=== PATIENT | female | born 1985 | race Two or more races ===

== ENCOUNTER 2017-03-23 20:34 | Emergency (ER) | payer SELFPAY ==
[~2017-03-23] VITALS: Ht 162.6 cm; Wt 68.0 kg
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
[2017-03-23] MEDS ORDERED: ONDANSETRON HCL/PF 4 MG/2 ML VIAL IVP ONE (21:00)
[2017-03-23] MEDS ORDERED: CLINDAMYCIN 900 MG in IV D5W 50 ML IV ONE (21:00)
[2017-03-23] MEDS ORDERED: MORPHINE SULFATE INJ 2 MG/ML DISP.SYRIN IV ONE (21:00)
[2017-03-23] MEDS ORDERED: ONDANSETRON HCL/PF 4 MG/2 ML VIAL ONE (21:23)
[2017-03-23] MEDS ORDERED: MORPHINE SULFATE INJ 4 MG/ML DISP.SYRIN ONE (21:23)
[2017-03-23] MEDS ORDERED: CLINDAMYCIN 900 MG/6 ML VIAL ONE (21:23)
[2017-03-23] MEDS ORDERED: IV D5W 50 ML IV ONE (21:24)
--- NOTE | 2017-03-23 21:33 | NUR ---
MEDICATED PT ORDERED
[2017-03-23] MEDS ORDERED: LORAZEPAM INJ 2 MG/ML VIAL ONE (22:07)
[2017-03-23] MEDS ORDERED: HYDROMORPHONE 1 MG/1 ML DISP.SYRIN ONE (22:07)
[2017-03-23] MEDS ORDERED: HYDROMORPHONE 1 MG/1 ML DISP.SYRIN IV ONE (22:30)
[2017-03-23] MEDS ORDERED: LORAZEPAM INJ 2 MG/ML VIAL IV ONE (22:30)
--- NOTE | 2017-03-23 22:45 | NUR ---
IV removed. Catheter intact and site benign. Pressure and 4x4 applied to site. No bleeding noted.Patient discharged to home in stable condition. Written and verbal after care instructions given. Patient verbalizes understanding of instruction.
[2017-03-23 22:46] VITALS: BP 128/78
== END 2017-03-23 22:46 | disposition home or self-care (01) ==
LOC: ER 20:39
DX: S61.512D Laceration without foreign body of left wrist, subsequent encounter (principal); Z90.49 Acquired absence of other specified parts of digestive tract; Z88.0 Allergy status to penicillin; W25.XXXD Contact with sharp glass, subsequent encounter; Y93.89 Activity, other specified; Y92.89 Other specified places as the place of occurrence of the external cause; Y99.9 Unspecified external cause status
CPT/HCPCS: A4606; A6402; J1170; J2060; J2270; J2405; J3490; J7060; Z7610

== ENCOUNTER 2018-01-29 20:54 | Emergency (ER) | payer MEDICAID ==
[~2018-01-29] VITALS: Ht 160 cm; Wt 65.8 kg
[2018-01-29 21:28] VITALS: BP 149/93
--- NOTE | 2018-01-29 22:49 | NUR ---
AND DARRICK QUEVEDO BEDSIDE FOR PELVIC EXAM.
[2018-01-29 22:50] LABS: APPEARANCE,URINE SL CLOUDY (CLEAR); BILIRUBIN,URINE 1+ (NEGATIVE); BLOOD, URINE TRACE-INTA Ery/uL (NEGATIVE); COLOR,URINE DARK YELLO (YELLOW); KETONES,URINE NEGATIVE (NEGATIVE); LEUKOCYTE ESTERASE ,URINE TRACE (NEGATIVE); NITRITE, URINE NEGATIVE (NEGATIVE); PROTEIN,URINE TRACE mg/dl (NEGATIVE); UGLUCOSE NEGATIVE (NEGATIVE); UROBILINOGEN,URINE 0.2 EU/dL (0.2)
--- NOTE | 2018-01-29 22:56 | NUR ---
AND DARRICK QUEVEDO OUT OF PT'S ROOM
[2018-01-29 23:15] LABS: BACTERIA,URINE None seen /HPF (None Seen); SQUAMOUS EPITHELIAL CELL,UR Moderate /HPF (None Seen); WBC,URINE 0-2 /HPF (0-3)
== END 2018-01-30 01:16 | disposition home or self-care (01) ==
LOC: ER 20:54
DX: A63.0 Anogenital (venereal) warts (principal); Z90.49 Acquired absence of other specified parts of digestive tract; Z88.0 Allergy status to penicillin
CPT/HCPCS: 36415; 81001; 84703; 86592; 87210; 87491; 87591; 99284; A4606; A6402; Z7610; 81000-TC

== ENCOUNTER 2018-06-14 00:30 | Emergency (ER) | payer MEDICAID ==
--- NOTE | 2018-06-14 00:40 | NUR ---
CALLED FOR TRIAGE; NOT IN LOBBY
--- NOTE | 2018-06-14 00:52 | NUR ---
NOT IN LOBBY AGAIN FOR TRIAGE
--- NOTE | 2018-06-14 01:56 | NUR ---
CALLED AGAIN; NOT IN LOBBY OR OUTSIDE
--- NOTE | 2018-06-14 02:16 | NUR ---
CALLED AGAIN AND AGAIN; NOT IN LOBBY OR OUTSIDE ER.
--- NOTE | 2018-06-14 02:49 | NUR ---
STILL NOT IN LOBBY.
== END 2018-06-14 02:50 | disposition left against medical advice (07) ==
LOC: ER 00:32
DX: Z53.21 Procedure and treatment not carried out due to patient leaving prior to being seen by health care provider (principal); Z90.49 Acquired absence of other specified parts of digestive tract; Z88.0 Allergy status to penicillin

== ENCOUNTER 2019-11-01 23:37 | Emergency (ER) | payer MEDICAID ==
[~2019-11-01] VITALS: Ht 160 cm; Wt 70.3 kg
[2019-11-01 23:37] VITALS: BP 124/62
--- NOTE | 2019-11-02 00:06 | NUR ---
Patient discharged to home in stable condition. Written and verbal after care instructions given. Patient verbalizes understanding of instruction.
== END 2019-11-02 00:06 | disposition home or self-care (01) ==
LOC: ER 23:39
DX: L02.414 Cutaneous abscess of left upper limb (principal); F17.200 Nicotine dependence, unspecified, uncomplicated; Z90.49 Acquired absence of other specified parts of digestive tract; Z88.0 Allergy status to penicillin

== ENCOUNTER 2019-12-08 23:59 | Emergency (ER) | payer MEDICAID ==
[~2019-12-08] VITALS: Ht 160 cm; Wt 65.8 kg
[2019-12-08 23:59] VITALS: BP 147/98
== END 2019-12-09 02:09 | disposition home or self-care (01) ==
LOC: ER 12-09
DX: L03.115 Cellulitis of right lower limb (principal); L03.114 Cellulitis of left upper limb; F17.200 Nicotine dependence, unspecified, uncomplicated; Z90.49 Acquired absence of other specified parts of digestive tract; Z88.0 Allergy status to penicillin

== ENCOUNTER 2021-08-23 19:09 | Emergency (ER) | payer MEDICAID ==
[~2021-08-23] VITALS: Ht 160 cm; Wt 72.6 kg
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
--- NOTE | 2021-08-23 19:48 | NUR ---
US AT BEDSIDE
--- NOTE | 2021-08-23 20:26 | NUR ---
lab at bedside
[2021-08-23 20:35] LABS: BASOPHILS % (AUTO) 0.6 % (0.0-2.0); HEMATOCRIT 38 % (33-45); HEMOGLOBIN 12.6 g/dL (11.5-14.8); LYMPHOCYTES % (AUTO) 30.6 % (20.0-44.0); MEAN CORPUSCULAR HGB CONC 33 g/dl (31.0-36.0); MEAN CORPUSCULAR VOLUME 88 fL (82-100); MONOCYTES # (AUTO) 0.3 K/uL (0.1-1.30); MONOCYTES % (AUTO) 5.1 % (2.0-12.0); NEUTROPHILS # (AUTO) 4.1 K/uL (1.8-8.9); NEUTROPHILS % (AUTO) 61.7 % (43.0-81.0); PLATELET COUNT (AUTO) 382 K/uL (150-450); RED BLOOD CELL COUNT(AUTO) 4.33 MIL/uL (4.0-5.2); WHITE BLOOD COUNT (AUTO) 6.6 K/uL (4.3-11.0)
--- NOTE | 2021-08-23 20:47 | NUR ---
F/U LAB ABOUT URINE
[2021-08-23 21:05] LABS: CALCIUM, SERUM 8.2 mg/dL (8.5-10.1); CREATININE 1.1 mg/dL (0.6-1.3); POTASSIUM 3.5 mmol/L (3.5-5.1)
--- NOTE | 2021-08-23 21:11 | NUR ---
sent urine to lab
[2021-08-23] MEDS ORDERED: NITR100C6 PO (21:54)
[2021-08-23 21:57] LABS: BILIRUBIN,URINE Negative (NEGATIVE); COLOR,URINE YELLOW (YELLOW); LEUKOCYTE ESTERASE ,URINE Small (NEGATIVE); NITRITE, URINE Negative (NEGATIVE); PROTEIN,URINE Negative (NEGATIVE); UGLUCOSE Negative (NEGATIVE); UROBILINOGEN,URINE 0.2 EU/dL (0.2)
[2021-08-23 22:02] LABS: BACTERIA,URINE 1+ /HPF (None Seen); SQUAMOUS EPITHELIAL CELL,UR Few /HPF (None Seen)
--- NOTE | 2021-08-23 22:08 | NUR ---
Patient discharged to home in stable condition. Written and verbal after care instructions given. Patient verbalizes understanding of instruction. PT ambulatory with a steady gait
[2021-08-23 22:14] VITALS: BP 142/95
== END 2021-08-23 22:08 | disposition home or self-care (01) ==
LOC: ER 19:20
DX: O34.81 Maternal care for other abnormalities of pelvic organs, first trimester (principal); N83.292 Other ovarian cyst, left side; N83.291 Other ovarian cyst, right side; F45.8 Other somatoform disorders; N39.0 Urinary tract infection, site not specified; F17.200 Nicotine dependence, unspecified, uncomplicated; Z90.49 Acquired absence of other specified parts of digestive tract; Z88.0 Allergy status to penicillin; Z79.899 Other long term (current) drug therapy
CPT/HCPCS: 36415; 76856; 80048; 81001; 84702; 85025; 85730; 86850; 87086; 99284; J7030

== ENCOUNTER 2023-12-18 19:34 | Emergency (ER) | payer MEDICAID ==
[~2023-12-18] VITALS: Ht 160 cm; Wt 68.0 kg
[~2023-12-18 19:34] MED LIST: NITR100C6 PO
[2023-12-18 23:08] VITALS: BP 138/95; TEMP 98.7; O2SAT 100
== END 2023-12-18 23:10 | disposition left against medical advice (07) ==
LOC: ER 19:36
DX: O46.91 Antepartum hemorrhage, unspecified, first trimester (principal); O26.891 Other specified pregnancy related conditions, first trimester; R10.30 Lower abdominal pain, unspecified; Z3A.10 10 weeks gestation of pregnancy
CPT/HCPCS: 76805-TC